=== PATIENT | male | born 1985 ===

== ENCOUNTER 2025-07-07 21:29 | Emergency (ER) | payer OTHER, SELFPAY ==
[2025-07-07 21:37] VITALS: BP 121/82
[2025-07-07 23:14] VITALS: BMI 29.9
--- NOTE | 2025-07-07 23:28 | ED.GENMED ---
History of Present Illness
General
Chief Complaint: Back Pain
Source: patient
Exam Limitations: none
Time Seen by Provider: 07/07/25 23:28
Nursing documentation reviewed up to this point in time: agreed with
History of Present Illness
History of Present Illness:
Note:
CHIEF COMPLAINT(S)
Severe pain in the lower back.
HISTORY OF PRESENT ILLNESS
The patient is a 40-year-old male who presented with severe lower back pain that started a few hours ago. The pain began while the patient was moving furniture. Initially, he experienced mild discomfort, which quickly progressed to severe pain,
accompanied by sweating. Lying down provides some relief, and movement exacerbates the pain. The patient took 400 mg of ibuprofen and two muscle relaxant pills at approximately 6 p.m., which provided minimal relief. He describes the pain as
generalized, without specific pinpointing to a particular spot, but notes difficulty moving and straightening up his body. There is no reported difficulty with urination but muscle spasms were noted. He believes the pain could have resulted from a
muscle strain related to his recent activities.
SOCIAL HISTORY
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
MEDICATIONS
The patient took 400 mg of ibuprofen and two muscle relaxant pills earlier today. The exact name of the muscle relaxant is unknown.
PHYSICAL EXAM
General: The patient is alert and is uncomfortable appearing.
Skin: Warm, dry.
Head: Normocephalic, atraumatic.
Neck: Supple, trachea midline.
Eyes, Ears, Nose, Mouth and Throat: Oral mucosa moist.
Cardiovascular: Normal peripheral perfusion, no edema.
Respiratory: Respirations are non-labored.
Musculoskeletal: Severe pain on movement of the upper body. The patient reports difficulty moving, turning, and standing up straight.
Neurological: Alert and oriented to person, place, time, and situation, no focal neurological deficit observed.
Psychiatric: Cooperative, appropriate mood, and affect.
PROBLEM LIST
Acute severe lower back pain potentially due to muscle strain.
PLAN
1. Order X-rays to evaluate the severity of the condition and rule out other injuries.
2. Prescribe gabapentin for pain management.
3. Advise the patient on rest and avoiding strenuous activities until the pain subsides.
DIFFERENTIAL DIAGNOSIS
The Differential Diagnosis includes, in no particular order and is not limited to:
1. Lumbar strain or sprain
2. Herniated or bulging intervertebral disc
3. Lumbar radiculopathy
4. Osteoarthritis
5. Sciatica
6. Fracture
7. Spinal stenosis
8. Muscular spasm
9. Spondylolisthesis
10. Ankylosing spondylitis
X-ray shows no signs of fracture. Patient improved after Neurontin and Toradol.
Patient was prescribed gabapentin and follow-up with pain management.
Do not suspect cauda equina pneumonia, AAA, aortic dissection or urinary tract infection patient stable for discharge.
Diagnosis thoracic back strain.
Phy Exam
Physical Exam
Physical Exam:
.
Course
Orders/Labs/Results
Orders:
Orders
07/07/25 23:40
Gabapentin [Neurontin] 300 mg PO NOW STA
Ketorolac [Toradol] 15 mg IM NOW STA
07/08/25 00:05
CR Lumbar Spine Comp Min 4 Vw* Urgent
Reason For Exam: lower thoracic/upper lumbar pain, worse right side
07/08/25 00:15
CR Thoracic Spine 3 Views Urgent
Reason For Exam: lower thoracic/upper lumbar pain, worse right side
Vital Signs
Initial and Last Documented VS:
Initial Vital Signs
Temp Pulse Resp BP Pulse Ox
98.1 F 65 16 121/82 98
07/07/25 21:37 07/07/25 21:37 07/07/25 21:37 07/07/25 21:37 07/07/25 21:37
Last Documented Vital Signs
Temp Pulse Resp BP Pulse Ox
98.1 F 65 16 121/82 98
07/07/25 21:37 07/07/25 21:37 07/07/25 21:37 07/07/25 21:37 07/07/25 23:28
*Pulse Oximetry
SaO2: 98
Oxygen Mode of Delivery: Room air
Patient hypoxic: no
*Critical Care Note
Total Time (30-74mins, 75-104mins- exclusive of procedures): Not Applicable
ED Attending Note
-
Portions of this chart may have been created with voice recognition software.� Occasional wrong word or��sound alike� substitutions may have occurred due to the inherent limitations of voice recognition software.
Discharge Plan
Departure
Patient Disposition: Home (Routine Discharge)
Date of Disposition: 07/08/25
Time of Disposition: 01:18
Patient with high blood pressure during this ER visit?: Yes
Condition: Good
Discharge Problem:
Strain of thoracic back region
Instructions: Upper Back Pain (DC), BLOOD PRESSURE
Prescriptions:
New
gabapentin 300 mg capsule
300 mg PO TID Qty: 30 0RF
Referrals:
Ludwig Celaya MD [Active, Anesthesiology] - Call in 1-3 days for appt
UNKNOWN - PT DOES,NOT KNOW [Family Provider]
Interventions
Interventions:
*Risk Screen - Suicide Last Done: 07/07/25 21:42
*General Assessment Last Done: 07/07/25 21:42
*ED- Fall Risk Assessment Last Done: 07/07/25 23:15
*ED COVID-19 Vaccine History Last Done: 07/07/25 23:15
ED-Musculoskeletal Assessment Last Done: 07/07/25 23:15
Discharge Date and Time
Print Language: KOREAN
[2025-07-07] MEDS: NEURONTIN 300 MG PO (23:48)
[2025-07-07] MEDS: TORADOL 15 MG IM (23:49)
[2025-07-08 01:37] VITALS: BP 134/88
== END 2025-07-08 01:38 | disposition home or self-care (01) ==
LOC: EMR 21:29
PROVIDERS: EMERGENCY PHYSICIAN Emergency Medicine
DX: S29.012A Strain of muscle and tendon of back wall of thorax, initial encounter (principal); X50.0XXA Overexertion from strenuous movement or load, initial encounter
CPT/HCPCS: 96372; 99284; 72072; 72110